=== PATIENT | female | born 1950 | race Caucasian/White ===

== ENCOUNTER → 2017-01-06 | Outpatient (REF) | payer BC | LOC: LAB 17:06 | PROVIDERS: ATTEND Ophthalmology | DX: H16.042 Marginal corneal ulcer, left eye (principal) | CPT/HCPCS: 87070 ==

== ENCOUNTER → 2017-01-08 | Outpatient (REF) | payer BC | LOC: LAB 12:30 | PROVIDERS: ATTEND Ophthalmology | DX: H16.042 Marginal corneal ulcer, left eye (principal) | CPT/HCPCS: 87070 ==

== ENCOUNTER → 2017-01-27 | Outpatient (CLI) | payer BC | LOC: RAD 09:50 | PROVIDERS: ATTEND Family Medicine | DX: N63 Unspecified lump in breast (principal) | CPT/HCPCS: 76642; G0204 ==

== ENCOUNTER → 2017-02-10 | Outpatient (CLI) | payer BC ==
--- NOTE | 2017-02-10 14:04 | Diagnostic Imaging Report ---
INDICATION: Right breast ultrasound Focused ultrasonography of the right breast was performed in the 12:00 position for identification of target lesion prior to biopsy. Comparison is made to study of 01/27/2017. The hypoechoic, shadowing nodule seen on the previous study could not be identified in the upper central right breast near the chest wall on the current exam. Therefore, biopsy was not attempted. Options of MRI and short-term ultrasound were discussed with the patient. Patient does report tenderness in the upper central right breast and will monitor this region with self-examination. IMPRESSION: Category 3, probably benign finding. Lesion for biopsy was not definitely identified on the current study and could not be targeted for biopsy. Short-term ultrasound followup in 3 months would be useful to ensure stability of this region. ACR BI-RADS Category 3: Probably benign findings. Dictated by: Dictated on workstation # [id number]
== END ==
LOC: RAD 11:34
PROVIDERS: ATTEND Family Medicine
DX: Z01.812 Encounter for preprocedural laboratory examination (principal); N63 Unspecified lump in breast
CPT/HCPCS: 36415; 76642; 85610; 85730